=== PATIENT | male | born 1985 | race Caucasian/White ===

== ENCOUNTER 2016-12-10 00:48 | Emergency (ER) | payer MEDICAID ==
[~2016-12-10] VITALS: Ht 185.4 cm; Wt 90.1 kg
[2016-12-10 00:51] VITALS: BP 148/91
== END 2016-12-10 01:40 | disposition home or self-care (01) ==
LOC: ED 01:20
DX: K08.89 Other specified disorders of teeth and supporting structures (principal)
CPT/HCPCS: 99283

== ENCOUNTER 2017-10-27 22:33 | Emergency (ER) | payer SELFPAY ==
[~2017-10-27] VITALS: Ht 185.4 cm; Wt 88.0 kg
[2017-10-27 22:37] VITALS: BP 138/93
== END 2017-10-27 23:17 | disposition home or self-care (01) ==
LOC: ED 22:55
DX: S46.311A Strain of muscle, fascia and tendon of triceps, right arm, initial encounter (principal); Z88.6 Allergy status to analgesic agent; F17.200 Nicotine dependence, unspecified, uncomplicated; W20.8XXA Other cause of strike by thrown, projected or falling object, initial encounter; Y93.89 Activity, other specified; Y99.0 Civilian activity done for income or pay; Y92.69 Other specified industrial and construction area as the place of occurrence of the external cause
CPT/HCPCS: 29105; 99283

== ENCOUNTER 2018-05-14 15:28 | Emergency (ER) | payer MEDICAID ==
[~2018-05-14] VITALS: Ht 185.4 cm; Wt 86.0 kg
[2018-05-14] MEDS ORDERED: HYDROmorphone 2 MG/ML, 1ML IM ONE (16:00)
[2018-05-14] MEDS ORDERED: HYDROmorphone 2 MG/ML, 1ML ONE (16:04)
[2018-05-14 16:29] LABS: MICROSCOPIC NOT IND
[2018-05-14 16:31] LABS: BASOPHILS # (AUTO) 0.02 x10^3/uL (0-0.1); BASOPHILS % (AUTO) 0 % (0-1); EOSINOPHILS # (AUTO) 0.06 x10^3/uL (0-0.4); EOSINOPHILS % (AUTO) 1 % (1-7); LYMPHOCYTES # (AUTO) 1.76 x10^3/uL (1-3.4); LYMPHOCYTES % (AUTO) 20 % (22-44); MD NO; MEAN CORPUSCULAR HGB CONC 33.8 g/dL (33.2-36.2); MEAN CORPUSCULAR VOLUME 94.6 fL (81-97); MONOCYTES # (AUTO) 0.61 x10^3/uL (0.2-0.8); MONOCYTES % (AUTO) 7 % (2-9); NEUTROPHILS # (AUTO) 6.29 x10^3/uL (1.8-6.8); NEUTROPHILS % (AUTO) 72 % (42-75); PLATELET COUNT 285 x10^3/uL (130-400); RED BLOOD COUNT 4.82 x10^6/uL (4.38-5.82); RED CELL DISTRIBUTION WIDTH 12.3 % (9.4-14.8)
[2018-05-14 16:32] LABS: CULTURE INDICATED? NO
[2018-05-14 16:34] LABS: ALBUMIN 3.6 g/dL (3.4-5.0); ANION GAP 8 mmol/L (5-15); CALCIUM 8.3 mg/dL (8.5-10.1); CHLORIDE 111 mmol/L (98-107); CREATININE 0.86 mg/dL (0.7-1.3)
[2018-05-14] MEDS ORDERED: DIPHENHYDRAMINE 25 MG CAPSULE ONE (17:03)
[2018-05-14] MEDS ORDERED: DIPHENHYDRAMINE 25 MG CAPSULE PO ONE (17:30)
[2018-05-14 18:24] VITALS: BP 146/92
== END 2018-05-14 18:25 | disposition home or self-care (01) ==
LOC: ED 16:32
DX: N50.812 Left testicular pain (principal); N50.811 Right testicular pain; N43.3 Hydrocele, unspecified; F17.210 Nicotine dependence, cigarettes, uncomplicated
CPT/HCPCS: 36415; 74176; 76870; 80048; 81003; 82040; 85025; 93975; 96372; 99284; J1170; Q0163

== ENCOUNTER 2019-04-08 08:28 | Inpatient (IN) | payer MEDICAID ==
[~2019-04-08] VITALS: Ht 185.4 cm; Wt 86.6 kg
--- NOTE | 2019-04-08 09:28 | NUR ---
Pt to 42 from lobby
--- NOTE | 2019-04-08 09:50 | NUR ---
PT WITH WOUND ON L PINKY TOE, STATES IT HAS BEEN THERE FOR 3 MONTHS, IT ISNT GETTING BETTER OR WORSE, PT DOES ALL DRESSINGS AND WOUND CARE HIMSELF. HE STATES HE HAD XRAY 3 MONTHS AGO -FOR OSTEO. PT HERE TO GET RE-EVALED
[2019-04-08] MEDS ORDERED: SODIUM CHLORIDE FLUSH 10ML SYR IVF ONE (10:00)
[2019-04-08] MEDS ORDERED: AMPICILLIN/SULBACTAM 3 GM in SODIUM CHLORIDE 0.9% 100 ML IV ONE (10:00)
[2019-04-08] MEDS ORDERED: VANCOMYCIN PER PHARMACY MC ONE (10:00)
[2019-04-08 10:21] LABS: BASOPHILS # (AUTO) 0.02 x10^3/uL (0-0.1); BASOPHILS % (AUTO) 0 % (0-1); EOSINOPHILS # (AUTO) 0.06 x10^3/uL (0-0.4); EOSINOPHILS % (AUTO) 1 % (1-7); LYMPHOCYTES % (AUTO) 38 % (22-44); MD NO; MEAN CORPUSCULAR HEMOGLOBIN 32.2 pg (27.5-34.5); MEAN CORPUSCULAR HGB CONC 33.1 g/dL (33.2-36.2); MEAN CORPUSCULAR VOLUME 97.3 fL (81-97); MEAN PLATELET VOLUME 7.2 fL (7.4-10.4); MONOCYTES # (AUTO) 0.58 x10^3/uL (0.2-0.8); MONOCYTES % (AUTO) 12 % (2-9); NEUTROPHILS # (AUTO) 2.47 x10^3/uL (1.8-6.8); NEUTROPHILS % (AUTO) 49 % (42-75); PLATELET COUNT 285 x10^3/uL (130-400); RED BLOOD COUNT 4.17 x10^6/uL (4.38-5.82); RED CELL DISTRIBUTION WIDTH 13.5 % (9.4-14.8)
[2019-04-08] MEDS ORDERED: PHARMACOKINETIC CONSULTATION MC ONE ×2 (10:30→14:00)
[2019-04-08] MEDS ORDERED: VANCOMYCIN 1,800 MG in SODIUM CHLORIDE 0.9% 250 ML IV ONE (10:30)
[2019-04-08 10:31] LABS: ALBUMIN 3.5 g/dL (3.4-5.0); ANION GAP 4 mmol/L (5-15); CALCIUM 8.7 mg/dL (8.5-10.1); CHLORIDE 111 mmol/L (98-107); CREATININE 0.79 mg/dL (0.7-1.3)
--- NOTE | 2019-04-08 10:35 | NUR ---
PIV INITIATED, ABX BEGAN
--- NOTE | 2019-04-08 11:06 | NUR ---
PT MEDICATED AGAIN PER JUL, DENIES PAIN AT THIS TIME
[2019-04-08] MEDS ORDERED: MIDAZOLAM 1 MG/ML, 2ML ONE (11:49)
[2019-04-08] MEDS ORDERED: FENTANYL PF 250 MCG/5ML ONE (11:49)
[2019-04-08] MEDS ORDERED: ONDANSETRON 2MG/ML, 2ML IVPush PRN (12:00)
[2019-04-08] MEDS ORDERED: ONDANSETRON ODT 4 MG PO PRN (12:00)
[2019-04-08] MEDS ORDERED: ENOXAPARIN 40 MG/0.4 ML SQ SCH (12:00)
[2019-04-08] MEDS ORDERED: VANCOMYCIN PER PHARMACY MC PRN (12:00)
[2019-04-08] MEDS ORDERED: ACETAMINOPHEN 325 MG TABLET PO PRN (12:00)
[2019-04-08 12:21] LABS: HCT (SEDRATE) 40.5 % (39.2-51.8)
[2019-04-08] MEDS ORDERED: SUCCINYLCHOLINE 20 MG/ML, 10ML ONE (12:40)
[2019-04-08] MEDS ORDERED: DEXAMETHASONE 4 MG/ML, 1ML ONE (12:40)
[2019-04-08] MEDS ORDERED: KETOROLAC 30 MG/1 ML ONE (12:40)
[2019-04-08] MEDS ORDERED: ONDANSETRON 2MG/ML, 2ML ONE (12:40)
[2019-04-08] MEDS ORDERED: LIDOCAINE-MPF 2% ,5ML ONE (12:40)
[2019-04-08] MEDS ORDERED: PROPOFOL 10 MG/ML, 20ML ONE (12:40)
[2019-04-08] MEDS ORDERED: HYDROcodone/APAP 7.5-325MG/15ML UDC PO PRN (13:00)
[2019-04-08] MEDS ORDERED: MEPERIDINE/PF 25MG/ML,1ML IVPush PRN (13:00)
[2019-04-08] MEDS ORDERED: FENTANYL PF 100 MCG/2ML IV PRN (13:00)
[2019-04-08] MEDS ORDERED: LABETALOL 5MG/ML, 20ML IV PRN (13:00)
[2019-04-08] MEDS ORDERED: hydrALAzine 20 MG/ML, 1ML IV PRN (13:00)
[2019-04-08] MEDS ORDERED: HALOPERIDOL 5 MG/ML IV PRN (13:00)
[2019-04-08] MEDS ORDERED: PROMETHAZINE 25 MG/ML, 1ML IV PRN (13:00)
[2019-04-08] MEDS ORDERED: HYDROmorphone 2 MG/ML, 1ML IVPush PRN (13:00)
[2019-04-08 13:35] VITALS: BP 149/95
[2019-04-08] MEDS ORDERED: MORPHINE SULFATE 4 MG/ML, 1ML ONE (13:54)
[2019-04-08] MEDS: morphine SULFATE 10 MG/ML, 1ML IVPush PRN ×4 (13:57→18:44)
[2019-04-08] MEDS ORDERED: PHARMACOKINETIC MONITORING MC PRN (14:00)
[2019-04-08] MEDS: CEFAZOLIN 2,000 MG in SODIUM CHLORIDE 0.9% 50 ML IV SCH ×2 (14:32→22:34)
[2019-04-08] MEDS: AMPICILLIN/SULBACTAM 3 GM in SODIUM CHLORIDE 0.9% 100 ML IV SCH ×2 (17:22→23:18)
[2019-04-08 19:10] VITALS: BP 130/78
[2019-04-08] MEDS ORDERED: HYDROcodone/APAP 5/325 TABLET ONE (22:29)
[2019-04-08] MEDS: HYDROcodone/APAP 5/325 TABLET PO PRN (22:35)
[2019-04-08 23:49] VITALS: BP 143/81
[2019-04-09] MEDS: VANCOMYCIN 1,800 MG in SODIUM CHLORIDE 0.9% 250 ML IV SCH ×2 (00:06→11:30)
[2019-04-09] MEDS: HYDROcodone/APAP 5/325 TABLET PO PRN ×2 (04:46→10:32)
[2019-04-09] MEDS: AMPICILLIN/SULBACTAM 3 GM in SODIUM CHLORIDE 0.9% 100 ML IV SCH ×2 (04:47→10:26)
[2019-04-09 04:53] VITALS: BP 149/86
[2019-04-09 05:17] LABS: ALANINE AMINOTRANSFERASE 36 U/L (12-78); ALBUMIN 3.2 g/dL (3.4-5.0); ANION GAP 4 mmol/L (5-15); CHLORIDE 111 mmol/L (98-107); CREATININE 0.76 mg/dL (0.7-1.3)
[2019-04-09 05:19] LABS: ALKALINE PHOSPHATASE 108 U/L (45-117); BILIRUBIN,TOTAL 0.6 mg/dL (0.2-1.0); TOTAL PROTEIN 6.7 g/dL (6.4-8.2)
[2019-04-09 05:21] LABS: HEMOGLOBIN A1C 4.8 % (4.2-6.3)
[2019-04-09 07:06] VITALS: BP 156/93
[2019-04-09] MEDS ORDERED: Sulfameth./Trimethoprim Ds PO (10:56)
[2019-04-09] MEDS ORDERED: SULFAMETH./TRIMETHOPRIM DS 800MG/160MG TABLET PO SCH (11:00)
[2019-04-09] MEDS ORDERED: HYDR-3237 PO (11:32)
[2019-04-09] MEDS ORDERED: DOCU-131 PO (11:32)
== END 2019-04-09 12:23 | disposition home or self-care (01) | DRG 505 ==
LOC: ED 09:52 → EDIP 11:07 → 4NE 13:32
PROVIDERS: ADMIT Family Medicine; ATTEND Internal Medicine
PROC: 0Y6Y0Z1 Detachment at Left 5th Toe, High, Open Approach (ICD-10-PCS; principal; 2019-04-08 12:30)
DX: M86.272 Subacute osteomyelitis, left ankle and foot (principal); L97.529 Non-pressure chronic ulcer of other part of left foot with unspecified severity; L03.032 Cellulitis of left toe; D53.9 Nutritional anemia, unspecified; F12.10 Cannabis abuse, uncomplicated; F17.210 Nicotine dependence, cigarettes, uncomplicated; Z90.5 Acquired absence of kidney
CPT/HCPCS: 36415; 73630; J3490; 80048; 80053; 82040; 83036; 85025; 85651; 86140; 87070; 87077; 87186; 87205; 88305; 88311; G0378; J0295; J0690; J1100; J1650; J1885; J2250; J2405; J2704; J3010; J3370; J0330; J2270; J7050

== ENCOUNTER 2019-05-02 11:06 | Emergency (ER) | payer MEDICAID ==
[~2019-05-02] VITALS: Ht 182.9 cm; Wt 80.4 kg
[~2019-05-02 11:06] MED LIST: DOCU-131 PO; HYDR-3237 PO; Sulfameth./Trimethoprim Ds PO
[2019-05-02] MEDS ORDERED: SODIUM CHLORIDE FLUSH 10ML SYR IVF ONE (12:00)
[2019-05-02 12:19] LABS: BASOPHILS # (AUTO) 0.01 x10^3/uL (0-0.1); BASOPHILS % (AUTO) 0 % (0-1); EOSINOPHILS # (AUTO) 0.12 x10^3/uL (0-0.4); EOSINOPHILS % (AUTO) 2 % (1-7); LYMPHOCYTES # (AUTO) 1.78 x10^3/uL (1-3.4); LYMPHOCYTES % (AUTO) 28 % (22-44); MD NO; MEAN CORPUSCULAR HGB CONC 33.1 g/dL (33.2-36.2); MEAN CORPUSCULAR VOLUME 96.7 fL (81-97); MONOCYTES # (AUTO) 0.61 x10^3/uL (0.2-0.8); MONOCYTES % (AUTO) 10 % (2-9); NEUTROPHILS # (AUTO) 3.77 x10^3/uL (1.8-6.8); NEUTROPHILS % (AUTO) 60 % (42-75); PLATELET COUNT 276 x10^3/uL (130-400); RED CELL DISTRIBUTION WIDTH 12.1 % (9.4-14.8)
[2019-05-02 12:28] LABS: HCT (SEDRATE) 43.9 % (39.2-51.8)
[2019-05-02 12:30] LABS: ALANINE AMINOTRANSFERASE 60 U/L (12-78); ALBUMIN 3.3 g/dL (3.4-5.0); ANION GAP 6 mmol/L (5-15); CALCIUM 8.9 mg/dL (8.5-10.1); CHLORIDE 109 mmol/L (98-107); CREATININE 0.81 mg/dL (0.7-1.3)
[2019-05-02 12:33] LABS: ALKALINE PHOSPHATASE 143 U/L (45-117); BILIRUBIN,TOTAL 0.4 mg/dL (0.2-1.0); TOTAL PROTEIN 7.2 g/dL (6.4-8.2)
[2019-05-02 13:30] VITALS: BP 135/90
[2019-05-02 13:50] LABS: ANTISTREPTOLYSIN-O TITER 200 IU/mL
[2019-05-02] MEDS ORDERED: OMNIPAQUE 350 MG/ML, 150 ML BOTTLE ONE (14:36)
--- NOTE | 2019-05-02 15:17 | NUR ---
DR JEF JACOB TO DISCUSS POC
[2019-05-02 16:21] LABS: ANA SCREEN NEGATIVE (Negative)
== END 2019-05-02 15:51 | disposition home or self-care (01) ==
LOC: ED 14:31
DX: I70.213 Atherosclerosis of native arteries of extremities with intermittent claudication, bilateral legs (principal)
CPT/HCPCS: 36415; 75635; 80053; 84550; 85025; 85651; 86038; 86060; 86063; 86430; 93005; 99284; Q9967

== ENCOUNTER 2019-10-08 15:03 | Emergency (ER) | payer MEDICAID ==
[~2019-10-08] VITALS: Ht 182.9 cm; Wt 88.0 kg
[2019-10-08 15:05] VITALS: BP 162/84
[2019-10-08] MEDS ORDERED: LIDOCAINE 1%-EPI 1:100K, 20ML ONE (15:09)
--- NOTE | 2019-10-08 15:10 | NUR ---
[employer]: PT TO ROOM, LIDOCAIN WITH EPI PULLED FOR PA LUCÍA TO SLOW BLEEDING.
--- NOTE | 2019-10-08 15:29 | NUR ---
Break RN: assumed care of pt on behalf of primary RN for lunch break only. 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 pt reports that his tetanus is UTD. PA has been to bedside to numb wound. wound is slightly oozing. gauze applied. SO at bedside. no other injuries
--- NOTE | 2019-10-08 15:40 | NUR ---
Break RN: tech at bedside for wound irrigation
--- NOTE | 2019-10-08 16:04 | NUR ---
PA AT BEDSIDE SUTURING, TECH FOR DRESSING WOUND
== END 2019-10-08 16:30 | disposition home or self-care (01) ==
LOC: ED 16:09
DX: S61.412A Laceration without foreign body of left hand, initial encounter (principal); F17.200 Nicotine dependence, unspecified, uncomplicated; W31.89XA Contact with other specified machinery, initial encounter; Y93.89 Activity, other specified; Y92.009 Unspecified place in unspecified non-institutional (private) residence as the place of occurrence of the external cause; Y99.8 Other external cause status
CPT/HCPCS: 12042; 99284

== ENCOUNTER 2019-10-19 11:49 | Emergency (ER) | payer MEDICAID ==
[~2019-10-19] VITALS: Ht 188 cm; Wt 98.6 kg
[2019-10-19 11:51] VITALS: BP 153/93
--- NOTE | 2019-10-19 12:08 | NUR ---
PT MERE FOR SUTURE REMOVAL ON L HAND AND TO HAVE TOES ON BILAT FEET CHECKED. 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 PT NOT DIABETIC. PT HAS GOOD PULSES ON FEET.
[2019-10-19] MEDS ORDERED: NEOSPORIN OINT. PKT 1 PACKET ONE (12:12)
--- NOTE | 2019-10-19 12:28 | NUR ---
ASSUMING PRIMARY CARE OF PT. XR AT BEDSIDE.
[2019-10-19 12:35] LABS: BASOPHILS # (AUTO) 0.01 x10^3/uL (0-0.1); BASOPHILS % (AUTO) 0 % (0-1); EOSINOPHILS # (AUTO) 0.08 x10^3/uL (0-0.4); EOSINOPHILS % (AUTO) 2 % (1-7); LYMPHOCYTES # (AUTO) 1.35 x10^3/uL (1-3.4); LYMPHOCYTES % (AUTO) 27 % (22-44); MD NO; MEAN CORPUSCULAR HEMOGLOBIN 31.3 pg (27.5-34.5); MEAN CORPUSCULAR HGB CONC 33.4 g/dL (33.2-36.2); MEAN CORPUSCULAR VOLUME 93.7 fL (81-97); MEAN PLATELET VOLUME 7.4 fL (7.4-10.4); MONOCYTES # (AUTO) 0.53 x10^3/uL (0.2-0.8); MONOCYTES % (AUTO) 11 % (2-9); NEUTROPHILS # (AUTO) 3.03 x10^3/uL (1.8-6.8); NEUTROPHILS % (AUTO) 61 % (42-75); PLATELET COUNT 297 x10^3/uL (130-400); RED CELL DISTRIBUTION WIDTH 15.4 % (9.4-14.8)
[2019-10-19 12:41] LABS: HCT (SEDRATE) 41.2 % (39.2-51.8)
[2019-10-19 12:48] LABS: ANION GAP 6 mmol/L (5-15); CALCIUM 8.9 mg/dL (8.5-10.1); CHLORIDE 109 mmol/L (98-107); CREATININE 0.92 mg/dL (0.7-1.3)
--- NOTE | 2019-10-19 13:55 | NUR ---
BREAK RN: PT DISCHARGED WITH RX AND PAPERWORK, WALKED TO STAMP COLLECTOR WITH STEADY GAIT
== END 2019-10-19 13:57 | disposition home or self-care (01) ==
LOC: ED 13:05
DX: L03.032 Cellulitis of left toe (principal); L03.031 Cellulitis of right toe; F17.200 Nicotine dependence, unspecified, uncomplicated; Z93.6 Other artificial openings of urinary tract status
CPT/HCPCS: 36415; 80048; 85025; 85651; 99284